=== PATIENT | female | born 1940 | race Caucasian/White ===

== ENCOUNTER → 2016-09-11 | Outpatient (CLI) | payer MEDICARE ==
[~2016-09-11] MED LIST: ?ANTIBIOTIC; ACET650T52 PO; ALBU2.5V52 INH; ALBU8.5H2 IH; ALBU8.5H2 INH; ALPR0.254 PO; ALPR0.2550 PO; AMLO2.5T PO; ASP81CT PO; ASP81TEC PO; ASPI-808 PO; ASPI1TAB22 PO; ASPI81TA45 PO; ATN50T PO; AZIT500T2 PO; BISO10TA PO; BISO5TAB PO; BISO5TAB8 PO; BMT1T; CALC-656 PO; CEFD300C PO; CEFD300C3 PO; CEFU500T5 PO; CEPH500C PO; CHOL200018 PO; CITA-105 PO; CITA20TA4 PO; CLAR-19 PO; CLD600T PO; CLPD75T PO; COQ 10 PO; D50KC PO; DIVA500T PO; DOXY-233 PO; ESCI5TAB PO; FA/M1TAB29 PO; FEXO-104 PO; FLUT1DIS2 IH; FLUT1DIS28 INH; FURO20TA4 PO; FURO40TA4 PO; HYDR-623 PO; IPRA3AMP11 INH; KCL10CCR; LEVO500S PO; LVT.1T PO; MAGN400C PO; MAGN400T6 PO; MAGN500C4 PO; MELO-195 PO; MELO-198 PO; MULT-974 PO; MULT-985 PO; MULT1TAB63 PO; NAPR-684 PO; NAPR250T34 PO; OMEG-11 PO; OMEP20CA12 PO; OMG1KC PO; ONDA4TAB8 PO; PANT40TA PO; POTA20TA15 PO; POTA20TA8 PO; PRAV40TA2 PO; PRD20T PO; PRED10TA PO; PRED20TA PO; PRM25T PO; PSYL1PAC15 PO; ROSU5TAB PO; SIMV40TA4 PO; SLMFT1E INH; SPRN25T PO; SULF1TAB35 PO; SULF1TAB38 PO; SUPER B COMPLEX PO; TIOT18CA IH; TIOT18CA2 INH; TRM50TRX; Tamiflu; UBID200C PO; VALP250C3 PO; VITA150T PO; VITA400C58 PO
--- OUTSIDE RECORDS SUMMARY | 2016-09-11 13:06 | XMS REPORT | Continuity of Care Document ---
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 Name Role Phone CAROLANN RICHARDSON MD PCP Insurance Providers Payer Name Policy Number Subscriber Name Relationship Wps Medicare [id number] Yaneli Aguilera 16 Self / Same As Patient Blue Cross [facility] Supp [id number] Yaneli Aguilera Self / Same As Patient Advance Directives Directive Response Recorded Date/Time Advance Directives Yes 09/23/15 2:32am Health Care Power of Metal Model Builder No 09/23/15 2:32am Organ Donor Yes 09/23/15 2:32am Problems Active Problems Medical Problem Onset Date Status Acute exacerbation of chronic bronchitis Unknown Acute Acute exacerbation of chronic bronchitis Unknown Acute Acute exacerbation of chronic bronchitis Unknown Acute Acute exacerbation of chronic bronchitis Unknown Acute Anxiety Unknown Acute Anxiety Unknown Acute Chest pain Unknown Acute Diuresis Unknown Acute Dyspnea Unknown Acute Dyspnea Unknown Acute Gastroenteritis Unknown Acute Influenza Unknown Acute Labile hypertension Unknown Acute Right leg pain Unknown Acute UTI (urinary tract infection) Unknown Acute Upper respiratory infection Unknown Acute Medications Current Home Medications Medication Dose Units Route Directions Days/Qty Instructions Start Date Clopidogrel Bisulfate 75 Mg 75 Mg Oral Every Other Evening 05/19/07 Spironolactone 25 Mg 25 Mg Oral Daily 05/19/07 Pantoprazole Sodium 40 Mg 40 Mg Oral Daily 09/12/11 Simvastatin 40 Mg 40 Mg Oral Bedtime 03/31/12 Levothyroxine Sodium (Levothroid) 100 Mcg 100 Mcg Oral Daily Ubidecarenone 200 Mg 200 Mg Oral Bedtime 08/25/14 [place]-3S/Dha/Epa/Fish Oil 1 Each 1,200 Mg Oral Twice A Day 08/25/14 Vitamin B Complex & Vit C No.4 150 Mg 1 Tab Oral Daily 08/25/14 Cholecalciferol (Vitamin D3) 2,000 Unit 2,000 Unit Oral Bedtime Acetaminophen 650 Mg 1,300 Mg Oral Twice A Day as needed for Pain TAKES 2 (650MG) TABLETS 08/25/14 Albuterol/Ipratropium 3 Ml 3 Ml Inhalation Every 6 Hours as needed for Shortness Of Breath 02/05/15 Albuterol Sulfate 8.5 Gm 2 Puff Inhalation Every 4HRS as needed for Shortness Of Breath 02/05/15 Salmeterol Xinafoate/Fluticasone 1 Disk 1 Puff Inhalation Twice A Day 02/05/15 Calcium Carbonate/Vitamin D3 1 Each 1 Tab Oral Bedtime 02/05/15 Multivitamin 1 Each 1 Tab Oral Daily 02/05/15 Aspirin 325 Mg 650 Mg Oral Daily TAKES 2 (325MG) TABLETS 09/24/15 Bisoprolol Fumarate 10 Mg 10 Mg Oral Bedtime 09/24/15 Tiotropium [place] 1 Inh 1 Inh Inhalation Daily 09/24/15 Alprazolam 0.25 Mg 0.25 Mg Oral Every 8HRS as needed for Anxiety Multivitamin With Minerals 1 Each 1 Tab Oral Daily 09/24/15 Vitamin E Mixed 400 Unit 400 Unit Oral Daily 09/24/15 Aspirin/Acetaminophen/Caffeine 1 Each 1 Tab Oral Daily as needed for Migraine 09/24/15 Potassium Chloride 20 Meq 20 Meq Oral Daily@0700 90 09/25/15 Furosemide 40 Mg 40 Mg Oral Daily 90 09/25/15 Past Home Medications Medication Directions Ordered Status Atenolol 50 Mg Tablet, 50 Mg Oral Daily 05/19/07 Discontinued Bumetanide 1 Mg Tablet, 05/19/07 Discontinued Aspirin 81 Mg Tablet, 81 Mg Oral Daily 05/19/07 Discontinued Levothyroxine Sodium (Levothroid) 100 Mcg Tablet, 100 Mcg Oral Daily Discontinued Naproxen 250 Mg Tablet, 500 Mg Oral Twice A Day as needed 05/19/07 Discontinued Omeprazole 20 Mg Capsule.dr, 20 Mg Oral Daily 05/19/07 Discontinued Potassium Chloride 10 Meq Capcr, 05/19/07 Discontinued Tramadol Hcl 50 Mg Tab, 05/19/07 Discontinued [Coq 10] Tab, 1 Tab Oral Bedtime 05/19/07 Discontinued Multivitamins 1 Ea Tablet, 1 Tab Oral Daily 05/19/07 Discontinued Calcium/Vitamin D 1 Tab Tablet, 1 Tab Oral Bedtime 05/19/07 Discontinued Fish Oil 1,000 Mg Cap, 1000 Mg Oral Twice A Day 05/19/07 Discontinued [Super B Complex] Tab, 1 Tab Oral Daily 05/19/07 Discontinued Promethazine Hcl 25 Mg Tablet, 1 Tab Oral Four Times Daily as needed Discontinued Rosuvastatin Calcium 5 Mg Tablet, 1 Each Oral Daily 09/12/11 Discontinued Bisoprolol Fumarate 5 Mg Tablet, 5 Mg Oral Bedtime 09/12/11 Discontinued Fexofenadine Hcl 180 Mg Tablet, 180 Mg Oral Daily 09/12/11 Discontinued Escitalopram Oxalate 5 Mg Tablet, 1 Each Oral Daily 09/12/11 Discontinued Magnesium Oxide 400 Mg Tablet, 1 Each Oral Daily 09/12/11 Discontinued Amlodipine Besylate (Norvasc 2.5 Mg) 2.5 Mg Tablet, 2.5 Mg Oral Daily Discontinued Salmeterol Xinafoate/Fluticasone 1 Diskus Inhp, 0 Inhalation Bedtime Discontinued Citalopram Hydrobromide 40 Mg Tablet, 20 Mg Oral Daily 03/31/12 Discontinued Albuterol 8.5 Gm Hfa.aer.ad, 8.5 Gm Inhalation As Needed 03/31/12 Discontinued Tiotropium [place] 1 Inh Aerp, 0 Inhalation Daily 03/31/12 Discontinued Ergocalciferol 50,000 Unit Capsule, 64083 Unit Oral Weekly 03/31/12 Discontinued Psyllium Hydrophilic Mucilloid 1 Pkt Packet, 1 Pkt Oral Bedtime as needed 12/05 Discontinued Divalproex Sodium 500 Mg Tablet.dr, 500 Mg Oral Twice A Day 04/18/12 Discontinued Aspirin 81 Mg Chew, 81 Mg Oral Daily 04/19/12 Discontinued Cephalexin Monohydrate (Keflex) 500 Mg Capsule, 1 Each Oral Four Times Daily 07/30/12 Discontinued Acetaminophen/Hydrocodone Bitart 1 Tab Tablet, 1 Each Oral Q 4 - 6 Hrs Prn Discontinued Azithromycin 500 Mg Tablet, 500 Mg Oral Daily 08/14/12 Discontinued Trimethoprim/Sulfamethoxazole 1 Ea Tablet, 1 Ea Oral Twice A Day 08/14/12 Discontinued Meloxicam (Mobic) 15 Mg Tablet, 15 Mg Oral Bedtime 08/06/13 Discontinued Acetaminophen 650 Mg Tablet.sa, 650 Mg Oral Twice A Day 08/06/13 Discontinued Cefdinir 300 Mg Capsule, 300 Mg Oral Twice A Day 08/06/13 Discontinued Prednisone 20 Mg Tab, 40 Mg Oral Daily 08/06/13 Discontinued [?Antibiotic] , Twice A Day 08/18/13 Discontinued [Tamiflu] , 75 Twice A Day 08/18/13 Discontinued Citalopram Hydrobromide 20 Mg Tablet, 20 Mg Oral Daily 08/18/13 Discontinued Naproxen 250 Mg Tablet, 500 Mg Oral Daily 08/18/13 Discontinued Meloxicam (Mobic) 7.5 Mg Tablet, 1 Each Oral Daily 01/21/14 Discontinued Cefdinir (Omnicef) 300 Mg Capsule, 1 Each Oral Twice A Day 01/21/14 Discontinued Aspirin 81 Mg Tabec, 81 Mg Oral Daily 08/25/14 Discontinued Fluticasone/Salmeterol 1 Each Disk.w.dev, 1 Puff Inhalation Twice A Day 08/25 Discontinued Albuterol 8.5 Gm Hfa.aer.ad, 2 Puff Inhalation Every 4HRS as needed for Shortness Of Breath 08/25/14 Discontinued Magnesium Oxide 400 Mg Capsule, 400 Mg Oral Bedtime 08/25/14 Discontinued Fa/Multivits-Min/Lycopene/Lut 1 Each Tablet, 1 Tab Oral Daily 08/25/14 Discontinued Cefuroxime Axetil (Ceftin) 500 Mg Tablet, 1 Each Oral Twice A Day 01/07/15 Discontinued Prednisone 10 Mg Tablet, 40 Mg Oral Daily 01/07/15 Discontinued Doxycycline Monohydrate 100 Mg Tablet, 100 Mg Oral Twice A Day 01/29/15 Discontinued Prednisone 20 Mg Tablet, 20 Mg Oral Twice A Day 01/29/15 Discontinued Albuterol Sulfate 2.5 Mg/3 Ml Nebu, 2.5 Mg Inhalation Every 4HRS as needed for Shortness Of Breath 02/03/15 Discontinued Prednisone 20 Mg Tablet, 40 Mg Oral Daily 07/11/15 Discontinued Levofloxacin 500 Mg/20 Ml Solution, 500 Mg Oral Daily 02/03/15 Discontinued Magnesium Oxide 500 Mg Capsule, 500 Mg Oral Bedtime 02/05/15 Discontinued Bisoprolol Fumarate 5 Mg Tablet, 10 Mg Oral Bedtime 02/05/15 Discontinued Alprazolam 0.25 Mg Tab.rapdis, 1 Each Oral Give Every 8 Hrs On Schedule for Anxiety 02/06/15 Discontinued Prednisone 20 Mg Tablet, 20 Mg Oral Twice A Day 02/06/15 Discontinued Furosemide 20 Mg Tablet, 20 Mg Oral Daily as needed for Swelling 08/03/15 Discontinued Sulfamethoxazole/Trimethoprim 1 Each Tablet, 1 Each Oral Every 12 Hours 08/03 Discontinued Ondansetron 4 Mg Tab.rapdis, 4 Mg Oral Every 6 Hours as needed for Nausea/ Vomiting 08/03/15 Discontinued Social History Social History Problem Response Recorded Date/Time Alcohol Use Denies Use 09/23/2015 2:34am Recreational Drug Use No 09/23/2015 2:34am Recent Foreign Travel No 04/12/2014 10:21pm Sexually Transmitted Disease No 09/23/2015 2:34am HIV/AIDS No 09/23/2015 2:34am Do you dip or chew tobacco? No 09/23/2015 2:36am Sexually Transmitted Disease No 09/23/2015 2:34am Hx Sexually Transmitted Disorders No 07/30/2012 8:30am Hospital Discharge Instructions Current inpatient/outpatient. Discharge instructions are currently unavailable. Plan of Care Prescriptions Functional Status No functional status results. Allergies, Adverse Reactions, Alerts Allergen Type Severity Reaction Status Last Updated Meperidine Allergy Intermediate NAUSEA Active 08/25/14 Immunizations No immunization records. Vital Signs No known vital signs results. Results No known relevant diagnostic tests, laboratory data and/or discharge summary. Procedures No known history of procedures. Encounters Encounter Location Arrival/Admit Date Discharge/Depart Date Attending Provider Registered Clinic [facility] 06/13/16 10:46am KASHIF HUFF APRN Discharged Recurring [facility] 05/16/16 10:47am 2:51pm KASHIF HUFF APRN
--- NOTE | 2016-09-12 11:53 | Diagnostic Imaging Report ---
Bilateral screening mammogram. The current study was also evaluated with a Computer Aided Detection (CAD) system. INDICATION: Screening. No current complaints stated on the questionnaire. COMPARISON: 09/06/2015. FINDINGS: The breasts are composed of scattered fibroglandular densities. There are occasional benign-appearing calcifications. Allowing for technique and positional differences, no suspicious change is seen. IMPRESSION: No significant change. ACR BI-RADS Category 2: Benign findings. Result letter will be mailed to the patient. Note: At least 10% of breast cancer is not imaged by mammography. Dictated by: Dictated on workstation # [id number]
== END ==
LOC: RAD 13:00
PROVIDERS: ATTEND Internal Medicine
DX: Z12.31 Encounter for screening mammogram for malignant neoplasm of breast (principal)
CPT/HCPCS: 77067

== ENCOUNTER 2016-09-17 22:12 | Emergency (ER) | payer MEDICARE ==
[~2016-09-17] VITALS: Ht 172.7 cm; Wt 83.5 kg
[~2016-09-17 22:12] MED LIST changes: -POTA20TA15 PO; -PRAV40TA2 PO
--- OUTSIDE RECORDS SUMMARY | 2016-09-17 22:18 | XMS REPORT | Continuity of Care Document ---
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 Name Role Phone CAROLANN RICHARDSON MD PCP Insurance Providers Payer Name Policy Number Subscriber Name Relationship Wps Medicare [id number] Yaneli Aguilera 16 Self / Same As Patient Blue Cross [facility] Supp [id number] Yaneli Aguilera Self / Same As Patient Advance Directives Directive Response Recorded Date/Time Advance Directives Yes 09/23/15 2:32am Health Care Power of Reinforcing Rod Layer No 09/23/15 2:32am Organ Donor Yes 09/23/15 [...] 200 Mg 200 Mg Oral Bedtime 08/25/14 [place]-3S/Dha/Epa/Fish Oil 1 Each 1,200 Mg Oral Twice [...] Mg 10 Mg Oral Bedtime 09/24/15 Tiotropium [place] 1 Inh 1 Inh Inhalation Daily 09/24/15 [...] Gm Inhalation As Needed 03/31/12 Discontinued Tiotropium [place] 1 Inh Aerp, 0 Inhalation Daily 03/31/12 Discontinued Ergocalciferol 50,000 Unit Capsule, 33284 Unit Oral Weekly 03/31/12 Discontinued Psyllium Hydrophilic [...] Discharge/Depart Date Attending Provider Registered Clinic [facility] 06/13/16 10:46am KASHIF HUFF APRN Discharged Recurring [facility] 05/16/16 10:47am 2:51pm KASHIF HUFF APRN
[2016-09-17] MEDS ORDERED: ONDANSETRON 4 MG/2 ML (SDV) Z0FRAN IVP ONE (22:30)
[2016-09-17] MEDS ORDERED: NS 1000 ML IV BAG IV ONE (22:30)
--- NOTE | 2016-09-17 23:57 | ED GI ---
General Chief Complaint: Abdominal/GI Problems Stated Complaint: VOMITING Nursing Triage Note: PT C/O ABDOMINAL PAIN AND VOMITING FOR 3 HOURS. VOMIT 8x Sepsis Screen: No Definite Risk Source of Information: Patient Exam Limitations: No Limitations History of Present Illness Time Seen By Provider: 22:25 Initial Comments Patient complains of epigastric burning and vomiting since 7 p.m. She states she's vomited 8-10 times. Emesis is foodstuffs. No fevers. She denies diarrhea. Allergies and Home Medications Allergies Coded Allergies: meperidine (Verified Allergy, Intermediate, NAUSEA, 08/25/14) Home Medications Acetaminophen 650 Mg Tablet.sa 1,300 MG PO BID PRN PRN PAIN (Reported) TAKES 2 (650MG) TABLETS Albuterol Sulfate 8.5 Gm Aer.w.adap 2 PUFF INH Q4H PRN PRN SHORTNESS OF BREATH ( Reported) Albuterol/Ipratropium 3 Ml Nebu 3 ML INH Q6H PRN PRN SHORTNESS OF BREATH ( Reported) Alprazolam 0.25 Mg Tablet 0.25 MG PO Q8H PRN PRN ANXIETY (Reported) Aspirin 325 Mg Tablet 650 MG PO DAILY (Reported) TAKES 2 (325MG) TABLETS Aspirin/Acetaminophen/Caffeine 1 Each Tablet 1 TAB PO DAILY PRN PRN MIGRAINE ( Reported) Bisoprolol Fumarate 10 Mg Tablet 10 MG PO HS (Reported) Calcium Carbonate/Vitamin D3 1 Each Tablet 1 TAB PO HS (Reported) Cholecalciferol (Vitamin D3) 2,000 Unit Capsule 2,000 UNIT PO HS (Reported) Clopidogrel 75 Mg Tablet 75 MG PO EVERY OTHER EVENING (Reported) Fluticasone/Salmeterol 1 Disk Inhp 1 PUFF INH BID (Reported) Furosemide 40 Mg Tablet #90 40 MG PO DAILY Prescribed by: CORNELIUS LESTER on 09/25/15 0836 Levothyroxine Sodium 100 Mcg Tablet 100 MCG PO DAILY (Reported) Multivitamin 1 Each Tablet 1 TAB PO DAILY (Reported) Multivitamin with Minerals 1 Each Tablet 1 TAB PO DAILY (Reported) [place]-3S/Dha/Epa/Fish Oil 1 Each Capsule 1,200 MG PO BID (Reported) Pantoprazole Sodium 40 Mg Tablet.dr 40 MG PO DAILY (Reported) Potassium Chloride 20 Meq Tab.er.prt #90 20 MEQ PO DAILY@0700 Prescribed by: CORNELIUS LESTER on 09/25/15 0836 Simvastatin 40 Mg Tablet 40 MG PO HS (Reported) Spironolactone 25 Mg Tablet 25 MG PO DAILY (Reported) Tiotropium [place] 1 Inh Aerp 1 INH INH DAILY (Reported) Ubidecarenone 200 Mg Capsule 200 MG PO HS (Reported) Vitamin B Complex & Vit C No.4 150 Mg Tablet 1 TAB PO DAILY (Reported) Vitamin E Mixed 400 Unit Capsule 400 UNIT PO DAILY (Reported) Review of Systems Constitutional: no symptoms reported Respiratory: No Symptoms Reported Cardiovascular: No Symptoms Reported Gastrointestinal: Abdominal PainDenies Diarrhea, Nausea Vomiting Genitourinary: No Symptoms Reported Musculoskeletal: no symptoms reported All Other Systems Reviewed Negative Unless Noted: Yes Past Gludkim-Djqbnz-Doiuhu Hx Patient Social History Former Smoker/When Quit: Feb 05, 1995 Recent Foreign Travel: No Contact w/Someone Who Travel: No Recent Infectious Disease Expo: No Recent Hopitalizations: Yes Immunizations Up To Date Tetanus Booster (TDap): Unknown PED Vaccines UTD: No Date of Pneumonia Vaccine: Apr 26, 2011 Date of Influenza Vaccine: May 31, 2015 Seasonal Allergies Seasonal Allergies: No Surgeries HX Surgeries: Yes (SURGERY FOR ENDOMETRIOSIS;MULTIPLE ORTHO SURGERIES;C-SPINE SURGERY) Surgeries: Adenoidectomy, Appendectomy, Cardiac, CABG, Hysterectomy, Lobectomy , Oophorectomy, Orthopedic, Pneumonectomy, Tonsillectomy Respiratory Hx Respiratory Disorders: Yes Respiratory Disorders: Chronic Bronchitis, Sleep Apnea, COPD, Emphysema Cardiovascular Hx Cardiac Disorders: Yes Cardiac Disorders: Aneurysm, Chronic Edema/Swelling, Coronary Artery Disease, High Cholesterol, Hypertension, Peripheral Vascular Neurological Hx Neurological Disorders: No Reproductive System Hx Reproductive Disorders: No Sexually Transmitted Disease: No HIV/AIDS: No Female Reproductive Disorders: Denies, Endometriosis 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 Genitourinary Hx Genitourinary Disorders: No Gastrointestinal Hx Gastrointestinal Disorders: Yes Gastrointestinal Disorders: Gastroesophageal Reflux, Esophagitis Musculoskeletal Hx Musculoskeletal Disorders: Yes (CHRONIC NECK PAIN--S/P SURGERY, MULTIPLE ORTHO SURGERIES) Musculoskeletal Disorders: Arthritis Endocrine Hx Endocrine Disorders: Yes Endocrine Disorders: Hypothyroidsim HEENT HX ENT Disorders: Yes HEENT Disorders: Cataract Loss of Vision: Bilateral Hearing Impairment: Bilateral Hearing Aide Cancer Hx Cancer: Yes Cancer: Lung Psychosocial Hx Psychiatric Problems: No Integumentary HX Skin/Integumentary Disorder: No Blood Transfusions Hx Blood Disorders: No Adverse Reaction to a Blood Tr: No Reviewed Nursing Assessment Reviewed/Agree w Nursing PMH: Yes Family Medical History Significant Family History: No Pertinent Family Hx Family Medial History: Physical Exam Vital Signs VS - Last 72 Hours, by Label 09/17/16 22:18 Temp 96.2 Pulse 76 Resp 18 B/P 148/74 Pulse Ox 94 O2 Delivery Nasal Cannula O2 Flow Rate 2 Capillary Refill : Less Than 3 Seconds General Appearance: WD/WN no apparent distress Neck: supple Respiratory: lungs clear normal breath sounds Cardiovascular: regular rate, rhythm no edema Gastrointestinal: normal bowel sounds non tender soft Neurologic/Psychiatric: alert normal mood/affect Skin: normal color warm/dry Progress/Results/Core Measures Results/Orders My Orders Orders-SUKI STONE MD Cbc With Automated Diff (09/17/16 22:19) Comprehensive Metabolic Panel (09/17/16 22:19) Lipase (09/17/16 22:19) Ua Culture If Indicated (09/17/16 22:19) Acute Abd Series (09/17/16 22:19) Ns Iv 1000 Ml (Sodium Chloride 0.9%) (09/17/16 22:30) Ondansetron Injection (Zofran Injectio (09/17/16 22:30) Vital Signs/I&O Vital Sign - Last 12Hours 09/17/16 22:18 Temp 96.2 Pulse 76 Resp 18 B/P 148/74 Pulse Ox 94 O2 Delivery Nasal Cannula O2 Flow Rate 2 Blood Pressure Mean: 98 Progress Note : Time: 23:56 Progress Note Better after IV fluids and Zofran. Departure Impression Impression: Primary Impression: Nausea and vomiting Disposition: 01 HOME, SELF-CARE Condition: Stable Departure-Patient Inst. Decision time for Depature: 23:56 Referrals: CAROLANN RICHARDSON MD (PCP/Family) Primary Care Physician Patient Instructions: Nausea and Vomiting, Adult SUKI STONE MD Sep 17, 2016 23:57
[2016-09-17] MEDS ORDERED: RX-ONDANSETRON 4 MG ODT (ZOFRAN) PPK #4 PO STA (23:58)
[2016-09-18 00:12] LABS: CREATININE SERUM 1.02 MG/DL (0.60-1.30); POTASSIUM 3.9 MMOL/L (3.6-5.0)
[2016-09-18 00:13] LABS: ALBUMIN 4.2 G/DL (3.2-4.5); BILIRUBIN,TOTAL 0.3 MG/DL (0.1-1.0); CALCIUM 9.8 MG/DL (8.5-10.1); TOTAL PROTEIN 6.9 G/DL (6.4-8.2)
[2016-09-18 00:19] LABS: WHITE BLOOD COUNT 8.9 10^3/uL (4.3-11.0)
[2016-09-18 00:20] LABS: BASOPHILS % (AUTO) 0 % (0-10); EOSINOPHILS # (AUTO) 0.1 10^3/uL (0.0-0.3); EOSINOPHILS % (AUTO) 2 % (0-10); LYMPHOCYTES # (AUTO) 0.8 X 10^3 (1.0-4.0); LYMPHOCYTES % (AUTO) 9 % (12-44); MEAN CORPUSCULAR HEMOGLOBIN 32 PG (25-34); MEAN CORPUSCULAR HGB CONC 32 G/DL (32-36); MEAN CORPUSCULAR VOLUME 98 FL (80-99); MEAN PLATELET VOLUME 9.8 FL (7.4-10.4); MONOCYTES # (AUTO) 0.9 X 10^3 (0.0-1.0); MONOCYTES % (AUTO) 11 % (0-12); NEUTROPHILS % (AUTO) 78 % (42-75); PLATELET COUNT 154 10^3/uL (130-400); RED BLOOD COUNT 4.23 10^6/uL (4.35-5.85); RED CELL DISTRIBUTION WIDTH 13.2 % (10.0-14.5)
[2016-09-18 00:30] VITALS: BP 106/52
--- NOTE | 2016-09-18 07:54 | Diagnostic Imaging Report ---
EXAM: ACUTE ABD SERIES INDICATION: Shortness of air. COMPARISON: Chest radiograph, 02/14/2015. FINDINGS: Normal heart size and pulmonary vascularity. Hyperinflation. Linear scarring and/or atelectasis in the lung bases. Sternotomy. Calcified aorta. Postoperative changes in the lower cervical spine. No free intraperitoneal air. Nonobstructive bowel gas pattern. Degenerative changes in the lumbar spine and both hips. IMPRESSION: 1. COPD. No acute cardiopulmonary findings. 2. Nonobstructive bowel gas pattern. No free intraperitoneal air. Dictated by: Dictated on workstation # [id number]
== END 2016-09-18 00:30 | disposition home or self-care (01) ==
LOC: EDUNIT# 22:12 → ER 22:14
DX: R11.2 Nausea with vomiting, unspecified (principal); R10.13 Epigastric pain; I10 Essential (primary) hypertension; J44.9 Chronic obstructive pulmonary disease, unspecified; I25.10 Atherosclerotic heart disease of native coronary artery without angina pectoris; Z79.82 Long term (current) use of aspirin; Z79.02 Long term (current) use of antithrombotics/antiplatelets; Z79.899 Other long term (current) drug therapy; Z95.1 Presence of aortocoronary bypass graft
CPT/HCPCS: 36415; 74022; 80053; 83690; 85025; 96361; 96374

== ENCOUNTER → 2016-10-01 | Outpatient (CLI) | payer MEDICARE ==
[~2016-10-01] MED LIST changes: +POTA20TA15 PO; +PRAV40TA2 PO
--- OUTSIDE RECORDS SUMMARY | 2016-10-01 11:25 | XMS REPORT | Continuity of Care Document ---
Author Author [facility] Organization [facility] Address Unknown Phone Unavailable Care Team Providers Care Adjutant General Name Role Phone CAROLANN RICHARDSON MD PCP Insurance Providers Payer Name Policy Number Subscriber Name Relationship Wps Medicare [id number] Yaneli Aguilera 16 Self / Same As Patient Blue Cross [employer] Supp [id number] Yaneli Aguilera Self / Same As Patient Advance Directives Directive Response Recorded Date/Time Advance Directives Yes 09/23/15 2:32am Health Care Power of Machine Compositor No 09/23/15 2:32am Organ Donor Yes 09/23/15 [...] 200 Mg 200 Mg Oral Bedtime 08/25/14 [place]-3S/Dha/Epa/Fish Oil 1 Each 1,200 Mg Oral Twice [...] Mg 10 Mg Oral Bedtime 09/24/15 Tiotropium [place] 1 Inh 1 Inh Inhalation Daily 09/24/15 [...] Gm Inhalation As Needed 03/31/12 Discontinued Tiotropium [place] 1 Inh Aerp, 0 Inhalation Daily 03/31/12 Discontinued Ergocalciferol 50,000 Unit Capsule, 20267 Unit Oral Weekly 03/31/12 Discontinued Psyllium Hydrophilic [...]
--- NOTE | 2016-10-01 12:34 | Diagnostic Imaging Report ---
INDICATION: Flulike symptoms x1 month. Shortness of air on exertion. COMPARISON: 09/17/2016 FINDINGS: Frontal and lateral radiographic views of the chest were obtained. There is stable appearance to the lungs with blunting of the lateral right costophrenic angle and tenting of the right hemidiaphragm. There is no focal consolidation or pneumothorax on either side. No large effusion is seen on the left. Cardiac silhouette and pulmonary vasculature within normal limits. Sternotomy wires and aortic atherosclerosis are noted. Bony structures show no gross acute abnormalities. IMPRESSION: 1. 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 Dictated by: Dictated on workstation # [id number]
== END ==
LOC: RAD 11:20
PROVIDERS: ATTEND Nurse Practitioner Family
DX: R06.02 Shortness of breath (principal); R09.02 Hypoxemia
CPT/HCPCS: 71020

== ENCOUNTER 2016-11-10 14:54 | Emergency (ER) | payer MEDICARE ==
[~2016-11-10] VITALS: Ht 172.7 cm; Wt 84.8 kg
[~2016-11-10 14:54] MED LIST changes: -POTA20TA15 PO; -PRAV40TA2 PO
--- NOTE | 2016-11-10 15:16 | ED Head Injury ---
General Chief Complaint: Head/Cervical Problems Stated Complaint: POSS HEAD INJURY Source: patient Exam Limitations: no limitations History of Present Illness Time seen by provider: 15:11 Initial Comments To ER with a right-sided hematoma over the right eyebrow. She ran into something on the wall 3 days ago. No loss of consciousness. Her doctor who she saw today for urinary tract infection was concerned and sent her to the emergency room. Occurred: last week Severity: moderate Location: frontal Loss of Consciousness: no loss of consciousness Associated Systoms: No Chest Pain, No Cough, No Diaphoresis, No Fever/Chills, No Headaches, No Loss of Appetite, No Malaise, No Nausea/Vomiting, No Rash Allergies and Home Medications Allergies Coded Allergies: meperidine (Verified Allergy, Intermediate, NAUSEA, 08/25/14) Home Medications Acetaminophen 650 Mg Tablet.sa, 1,300 MG PO BID PRN for PAIN, (Reported) TAKES 2 (650MG) TABLETS Albuterol Sulfate 8.5 Gm Aer.w.adap, 2 PUFF INH Q4H PRN for SHORTNESS OF BREATH, (Reported) Albuterol/Ipratropium 3 Ml Nebu, 3 ML INH Q6H PRN for SHORTNESS OF BREATH, ( Reported) Alprazolam 0.25 Mg Tablet, 0.25 MG PO Q8H PRN for ANXIETY, (Reported) Aspirin 325 Mg Tablet, 650 MG PO DAILY, (Reported) TAKES 2 (325MG) TABLETS Aspirin/Acetaminophen/Caffeine 1 Each Tablet, 1 TAB PO DAILY PRN for MIGRAINE, ( Reported) Bisoprolol Fumarate 10 Mg Tablet, 10 MG PO HS, (Reported) Calcium Carbonate/Vitamin D3 1 Each Tablet, 1 TAB PO HS, (Reported) Cholecalciferol (Vitamin D3) 2,000 Unit Capsule, 2,000 UNIT PO HS, (Reported) Clopidogrel 75 Mg Tablet, 75 MG PO EVERY OTHER EVENING, (Reported) Fluticasone/Salmeterol 1 Disk Inhp, 1 PUFF INH BID, (Reported) Furosemide 40 Mg Tablet, 40 MG PO DAILY, #90 Ref 3 Prescribed by: CORNELIUS LESTER on 09/25/15 0836 Levothyroxine Sodium 100 Mcg Tablet, 100 MCG PO DAILY, (Reported) Multivitamin 1 Each Tablet, 1 TAB PO DAILY, (Reported) Multivitamin with Minerals 1 Each Tablet, 1 TAB PO DAILY, (Reported) [place]-3S/Dha/Epa/Fish Oil 1 Each Capsule, 1,200 MG PO BID, (Reported) Pantoprazole Sodium 40 Mg Tablet.dr, 40 MG PO DAILY, (Reported) Potassium Chloride 20 Meq Tab.er.prt, 20 MEQ PO DAILY@0700, #90 Ref 3 Prescribed by: CORNELIUS LESTER on 09/25/15 0836 Simvastatin 40 Mg Tablet, 40 MG PO HS, (Reported) Spironolactone 25 Mg Tablet, 25 MG PO DAILY, (Reported) Tiotropium [place] 1 Inh Aerp, 1 INH INH DAILY, (Reported) Ubidecarenone 200 Mg Capsule, 200 MG PO HS, (Reported) Vitamin B Complex & Vit C No.4 150 Mg Tablet, 1 TAB PO DAILY, (Reported) Vitamin E Mixed 400 Unit Capsule, 400 UNIT PO DAILY, (Reported) Constitutional: see HPI, No chills, No fever Eyes: No Symptoms Reported Ears, Nose, Mouth, Throat: no symptoms reported Respiratory: no symptoms reported Cardiovascular: no symptoms reported Genitourinary: no symptoms reported Musculoskeletal: no symptoms reported Skin: no symptoms reported Psychiatric/Neurological: No Symptoms Reported Endocrine: No Symptoms Reported Hematologic/Lymphatic: No Symptoms Reported Past Ppjydqt-Lqsxru-Pywkpz Hx Patient Social History Former Smoker/When Quit: Feb 05, 1995 Recent Foreign Travel: No Contact w/Someone Who Travel: No Recent Hopitalizations: Yes Immunizations Up To Date Tetanus Booster (TDap): Unknown PED Vaccines UTD: No Date of Pneumonia Vaccine: Apr 26, 2011 Date of Influenza Vaccine: May 31, 2015 Seasonal Allergies Seasonal Allergies: No Surgeries HX Surgeries: Yes (SURGERY FOR ENDOMETRIOSIS;MULTIPLE ORTHO SURGERIES;C-SPINE SURGERY) Surgeries: Adenoidectomy, Appendectomy, Cardiac, CABG, Hysterectomy, Lobectomy , Oophorectomy, Orthopedic, Pneumonectomy, Tonsillectomy Respiratory Hx Respiratory Disorders: Yes Respiratory Disorders: Chronic Bronchitis, Sleep Apnea, COPD, Emphysema Cardiovascular Hx Cardiac Disorders: Yes Cardiac Disorders: Aneurysm, Chronic Edema/Swelling, Coronary Artery Disease, High Cholesterol, Hypertension, Peripheral Vascular Neurological Hx Neurological Disorders: No Reproductive System Hx Reproductive Disorders: No Sexually Transmitted Disease: No HIV/AIDS: No Female Reproductive Disorders: Denies, 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 Genitourinary Hx Genitourinary Disorders: No Gastrointestinal Hx Gastrointestinal Disorders: Yes Gastrointestinal Disorders: Gastroesophageal Reflux, Esophagitis Musculoskeletal Hx Musculoskeletal Disorders: Yes (CHRONIC NECK PAIN--S/P SURGERY, MULTIPLE ORTHO SURGERIES) Musculoskeletal Disorders: Arthritis Endocrine Hx Endocrine Disorders: Yes Endocrine Disorders: Hypothyroidsim HEENT HX ENT Disorders: Yes HEENT Disorders: Cataract Loss of Vision: Bilateral Hearing Impairment: Bilateral Hearing Aide Cancer Hx Cancer: Yes Cancer: Lung Psychosocial Hx Psychiatric Problems: No Integumentary HX Skin/Integumentary Disorder: No Blood Transfusions Hx Blood Disorders: No Adverse Reaction to a Blood Tr: No Family Medical History Significant Family History: No Pertinent Family Hx Family Medial History: Physical Exam Vital Signs Vital Sign - Last 12Hours 11/10/16 14:59 Temp 98.8 Pulse 71 Resp 18 O2 Delivery Nasal Cannula Capillary Refill : General Appearance: WD/WN, no apparent distress HEENT: PERRL/EOMI, normal ENT inspection, TMs normal, other (ecchymosis to right eyebrow) Neck: non-tender, full range of motion, No tender lateral, No tender midline Cardiovascular: regular rate, rhythm, no murmur Respiratory: normal breath sounds, no respiratory distress, no accessory muscle use Gastrointestinal: normal bowel sounds, non tender, soft Extremities: normal range of motion, non-tender Psychiatric: alert, oriented x 3 Crainal Nerves: normal hearing, normal speech, PERRL Motor/Sensory: no motor deficit, no sensory deficit Skin: normal color, warm/dry Samara Coma Score Best Eye Response: (4) Open Spontaneously Best Verbal Response: (5) Oriented Best Motor Response: (6) Obeys Commands Samara Total: 15 Progress/Results/Core Measures Results/Orders My Orders Orders - KATHRYN HUANG APRN Ct Head/Cervical Spine Wo (11/10/16 15:10) Vital Signs/I&O Vital Sign - Last 12Hours 11/10/16 14:59 Temp 98.8 Pulse 71 Resp 18 B/P (MAP) O2 Delivery Nasal Cannula Departure Impression Impression: Primary Impression: Head contusion Disposition: 01 HOME, SELF-CARE Condition: Stable Departure-Patient Inst. Decision time for Depature: 16:59 Referrals: CAROLANN RICHARDSON MD (PCP/Family) Primary Care Physician Patient Instructions: Contusion (DC) KATHRYN HUANG APRN Nov 10, 2016 15:16
--- NOTE | 2016-11-10 17:08 | Diagnostic Imaging Report ---
PROCEDURE: CT head and CT cervical spine without contrast. TECHNIQUE: Multiple contiguous axial images were obtained through the brain and cervical spine without the use of intravenous contrast. Sagittal and coronal reformations through the cervical spine were then performed. INDICATION: Dizziness and vision problems after hitting self while walking three days ago. FINDINGS: CT head: There is no intracranial hemorrhage, edema or mass effect. The brain parenchyma demonstrates periventricular and deep white matter hypodensities compatible with chronic microvascular ischemic changes. There is no hydrocephalus. No extra-axial fluid collection or hemorrhage. The visualized calvarium, orbits and paranasal sinuses appear grossly unremarkable. CT cervical spine: There are postsurgical fusion changes seen with anterior plate and screws involving the C3-C7 levels with corpectomy at C4 and C6 levels. There is fusion of the facet joints on the left involving C3/4 and C4/5 and early effusion on the right at the C3/4 level. There is also osseous bridging seen along the posterior left side aspect of the vertebral bodies C3-C5. No definite osseous fusion from C5-C7 levels. The alignment of the posterior spinal line is satisfactory. The remaining posterior osteophytes at C6/7 are seen. The alignment of the lateral masses of C1 and C2 is satisfactory as well as the atlantooccipital joints. No widening of the predental space. There is fusion between the spinous processes of C3 and C4. There is lower cervical spine facet and uncovertebral joint arthropathy. The neural foramina on the right side at C5/6 and C6/7 demonstrate moderate to severe narrowing. Other foramina demonstrates no high-grade stenosis. No acute fracture is seen. IMPRESSION: 1. CT Head: No intracranial hemorrhage. 2. CT cervical spine: Advanced background degenerative changes and postsurgical and fusion changes involving C3-C7 levels. No acute fracture. Dictated by: Dictated on workstation # [id number]
[2016-11-10 17:12] VITALS: BP 129/64
== END 2016-11-10 17:12 | disposition home or self-care (01) ==
LOC: EDUNIT# 14:54 → ER 14:56
DX: S00.93XA Contusion of unspecified part of head, initial encounter (principal); I25.10 Atherosclerotic heart disease of native coronary artery without angina pectoris; J44.9 Chronic obstructive pulmonary disease, unspecified; Z79.82 Long term (current) use of aspirin; Z79.02 Long term (current) use of antithrombotics/antiplatelets; Z79.899 Other long term (current) drug therapy; Z95.1 Presence of aortocoronary bypass graft; W22.01XA Walked into wall, initial encounter; Y92.009 Unspecified place in unspecified non-institutional (private) residence as the place of occurrence of the external cause; Y99.8 Other external cause status
CPT/HCPCS: 70450; 72125; 99282

== ENCOUNTER 2016-11-24 21:36 | Inpatient (IN) | payer MEDICARE ==
[~2016-11-24] VITALS: Ht 172.7 cm; Wt 83.4 kg
--- NOTE | 2016-11-24 22:15 | ED GI ---
General Chief Complaint: Abdominal/GI Problems Stated Complaint: DIARRHEA Nursing Triage Note: C/O MULTIPLE EPISODES DIARRHEA SINCE APPROX. 1500 TODAY. DENIES OTHER COMPLAINTS Sepsis Screen: No Definite Risk Source of Information: Patient, RN Notes Reviewed Exam Limitations: No Limitations History of Present Illness Time Seen By Provider: 22:15 Initial Comments As above and below. Initially denied any abdominal pain. Took some Imodium which didn't help. Timing/Duration: 4-6 Hours, Constant Radiation: No Radiation Activities at Onset: None Modifying Factors: Improves With Other (none) Associated Symptoms: Denies Symptoms Allergies and Home Medications Allergies Coded Allergies: meperidine (Verified Allergy, Intermediate, NAUSEA, 08/25/14) Home Medications Acetaminophen 650 Mg Tablet.sa, 1,300 MG PO BID PRN for PAIN, (Reported) TAKES 2 (650MG) TABLETS Albuterol Sulfate 8.5 Gm Aer.w.adap, 2 PUFF INH Q4H PRN for SHORTNESS OF BREATH, (Reported) Albuterol/Ipratropium 3 Ml Nebu, 3 ML INH Q6H PRN for SHORTNESS OF BREATH, ( Reported) Alprazolam 0.25 Mg Tablet, 0.25 MG PO Q8H PRN for ANXIETY, (Reported) Aspirin 325 Mg Tablet, 650 MG PO DAILY, (Reported) TAKES 2 (325MG) TABLETS Aspirin/Acetaminophen/Caffeine 1 Each Tablet, 1 TAB PO DAILY PRN for MIGRAINE, ( Reported) Bisoprolol Fumarate 10 Mg Tablet, 10 MG PO HS, (Reported) Calcium Carbonate/Vitamin D3 1 Each Tablet, 1 TAB PO HS, (Reported) Cholecalciferol (Vitamin D3) 2,000 Unit Capsule, 2,000 UNIT PO HS, (Reported) Clopidogrel 75 Mg Tablet, 75 MG PO EVERY OTHER EVENING, (Reported) Fluticasone/Salmeterol 1 Disk Inhp, 1 PUFF INH BID, (Reported) Furosemide 40 Mg Tablet, 40 MG PO DAILY, #90 Ref 3 Prescribed by: CORNELIUS LESTER on 09/25/15 0836 Levothyroxine Sodium 100 Mcg Tablet, 100 MCG PO DAILY, (Reported) Multivitamin 1 Each Tablet, 1 TAB PO DAILY, (Reported) Multivitamin with Minerals 1 Each Tablet, 1 TAB PO DAILY, (Reported) [place]-3S/Dha/Epa/Fish Oil 1 Each Capsule, 1,200 MG PO BID, (Reported) Pantoprazole Sodium 40 Mg Tablet.dr 40 MG PO DAILY, (Reported) Potassium Chloride 20 Meq Tab.er.prt, 20 MEQ PO DAILY@0700, #90 Ref 3 Prescribed by: CORNELIUS LESTER on 09/25/15 0836 Simvastatin 40 Mg Tablet, 40 MG PO HS, (Reported) Spironolactone 25 Mg Tablet, 25 MG PO DAILY, (Reported) Tiotropium [place] 1 Inh Aerp, 1 INH INH DAILY, (Reported) Ubidecarenone 200 Mg Capsule, 200 MG PO HS, (Reported) Vitamin B Complex & Vit C No.4 150 Mg Tablet, 1 TAB PO DAILY, (Reported) Vitamin E Mixed 400 Unit Capsule, 400 UNIT PO DAILY, (Reported) Review of Systems Constitutional: see HPI Gastrointestinal: See HPI, Diarrhea All Other Systems Reviewed Negative Unless Noted: Yes (Negative excepted noted.) Past Lirxpbh-Mumjef-[place] Hx Patient Social History Alcohol Use: Denies Use Recreational Drug Use: No Smoking Status: Former Smoker Former Smoker/When Quit: Feb 05, 1995 Recent Foreign Travel: No Contact w/Someone Who Travel: No Recent Infectious Disease Expo: No Recent Hopitalizations: Yes Immunizations Up To Date Tetanus Booster (TDap): Unknown PED Vaccines UTD: No Date of Pneumonia Vaccine: Apr 26, 2011 Date of Influenza Vaccine: May 31, 2015 Seasonal Allergies Seasonal Allergies: No Surgeries HX Surgeries: Yes (SURGERY FOR ENDOMETRIOSIS;MULTIPLE ORTHO SURGERIES;C-SPINE SURGERY) Surgeries: Adenoidectomy, Appendectomy, Cardiac, CABG, Hysterectomy, Lobectomy , Oophorectomy, Orthopedic, Pneumonectomy, Tonsillectomy Respiratory Hx Respiratory Disorders: Yes Respiratory Disorders: Chronic Bronchitis, Sleep Apnea, COPD, Emphysema Cardiovascular Hx Cardiac Disorders: Yes Cardiac Disorders: Aneurysm, Chronic Edema/Swelling, Coronary Artery Disease, High Cholesterol, Hypertension, Peripheral Vascular Neurological Hx Neurological Disorders: No Reproductive System Hx Reproductive Disorders: No Sexually Transmitted Disease: No HIV/AIDS: No Female Reproductive Disorders: 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, 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 Genitourinary Hx Genitourinary Disorders: No Gastrointestinal Hx Gastrointestinal Disorders: Yes Gastrointestinal Disorders: Gastroesophageal Reflux, Esophagitis Musculoskeletal Hx Musculoskeletal Disorders: Yes (CHRONIC NECK PAIN--S/P SURGERY, MULTIPLE ORTHO SURGERIES) Musculoskeletal Disorders: Arthritis Endocrine Hx Endocrine Disorders: Yes Endocrine Disorders: Hypothyroidsim HEENT HX ENT Disorders: Yes HEENT Disorders: Cataract Loss of Vision: Bilateral Hearing Impairment: Bilateral Hearing Aide Cancer Hx Cancer: Yes Cancer: Lung Psychosocial Hx Psychiatric Problems: No Integumentary HX Skin/Integumentary Disorder: No Blood Transfusions Hx Blood Disorders: No Adverse Reaction to a Blood Tr: No Family Medical History Significant Family History: No Pertinent Family Hx Family Medial History: Physical Exam Vital Signs VS - Last 72 Hours, by Label 11/24/16 11/25/16 22:09 00:05 Temp 96.9 Pulse 78 70 Resp 16 18 B/P (MAP) 130/94 135/84 Pulse Ox 96 95 O2 Delivery Nasal Cannula Room Air O2 Flow Rate 2.00 2.00 2.00 Capillary Refill : Less Than 3 Seconds General Appearance: WD/WN, no apparent distress HEENT: normal ENT inspection Neck: normal inspection Cardiovascular: regular rate, rhythm Gastrointestinal: non tender, soft Rectal: deferred Neurologic/Psychiatric: no motor/sensory deficits, alert, oriented x 3 Skin: warm/dry Progress/Results/Core Measures Results/Orders Lab Results Laboratory Tests Test 11/24/16 22:36 11/25/16 00:35 Range/Units White Blood Count 9.7 4.3-11.0 10^3/uL Red Blood Count 4.67 4.35-5.85 10^6/uL Hemoglobin 14.5 11.5-16.0 G/DL Hematocrit 45 35-52 % Mean Corpuscular Volume 96 80-99 FL Mean Corpuscular Hemoglobin 31 25-34 PG Mean Corpuscular Hemoglobin Concent 32 32-36 G/DL Red Cell Distribution Width 13.2 10.0-14.5 % Platelet Count 210 130-400 10^3/uL Mean Platelet Volume 10.2 7.4-10.4 FL Neutrophils (%) (Auto) 64 42-75 % Lymphocytes (%) (Auto) 28 12-44 % Monocytes (%) (Auto) 8 0-12 % Eosinophils (%) (Auto) 1 0-10 % Basophils (%) (Auto) 0 0-10 % Neutrophils # (Auto) 6.2 1.8-7.8 X 10^3 Lymphocytes # (Auto) 2.7 1.0-4.0 X 10^3 Monocytes # (Auto) 0.8 0.0-1.0 X 10^3 Eosinophils # (Auto) 0.1 0.0-0.3 10^3/uL Basophils # (Auto) 0.0 0.0-0.1 10^3/uL Sodium Level 141 135-145 MMOL/L Potassium Level 4.0 3.6-5.0 MMOL/L Chloride Level 107 98-107 MMOL/L Carbon Dioxide Level 23 21-32 MMOL/L Anion Gap 11 5-14 MMOL/L Blood Urea Nitrogen 23 H 7-18 MG/DL Creatinine 0.94 0.60-1.30 MG/DL Estimat Glomerular Filtration Rate 58 BUN/Creatinine Ratio 24 Glucose Level 90 70-105 MG/DL Calcium Level 10.6 H 8.5-10.1 MG/DL Magnesium Level 2.1 1.8-2.4 MG/DL Total Bilirubin 0.5 0.1-1.0 MG/DL Aspartate Amino Transf (AST/SGOT) 25 5-34 U/L Alanine Aminotransferase (ALT/SGPT) 25 0-55 U/L Alkaline Phosphatase 64 40-136 U/L Troponin I 2.80 *H <0.30 NG/ML B-Type Natriuretic Peptide 41.5 <100.0 PG/ML Total Protein 7.2 6.4-8.2 G/DL Albumin 4.4 3.2-4.5 G/DL Stool Occult Blood Immunoassay POSITIVE H NEGATIVE My Orders Orders - BILL MCKENNA DO Cbc With Automated Diff (11/24/16 22:15) Comprehensive Metabolic Panel (11/24/16 22:15) Stool Culture (11/24/16 22:15) Fecal Wbc (11/24/16 22:15) C Difficile Ag + Toxin A/B. (11/24/16 22:15) Occult Blood Stool (11/24/16 22:15) Ua Culture If Indicated (11/24/16 23:47) Saline Lock/Iv-Start (11/24/16 23:47) Ns Iv 1000 Ml (Sodium Chloride 0.9%) (11/24/16 23:47) Diphenoxylate/Atropine Tablet (Lomotil T (11/24/16 23:49) Diphenoxylate/Atropine Tablet (Lomotil T (11/24/16 23:52) Ct Abdomen/Pelvis W (11/25/16 23:47) Iohexol Injection (Omnipaque 350 Mg/Ml 1 (11/25/16 00:15) Sodium Chloride Flush (Catheter Flush Sy (11/25/16 00:15) Troponin I (11/25/16 00:19) Ekg Tracing (11/25/16 01:03) Chest 1 View, Ap/Pa Only (11/25/16 01:09) BNP (11/25/16 01:09) Magnesium (11/25/16 01:09) Medications Given in ED Current Medications Medications Dose Ordered Sig/Marisela Route Start Time Stop Time Status Last Admin Dose Admin Sodium Chloride 1,000 ml @ 0 mls/hr Q0M ONCE IV 11/24/16 23:47 11/24/16 23:49 DC 11/24/16 23:54 0 MLS/HR Vital Signs/I&O Vital Sign - Last 12Hours 11/24/16 11/25/16 22:09 00:05 Temp 96.9 Pulse 78 70 Resp 16 18 B/P (MAP) 130/94 135/84 Pulse Ox 96 95 O2 Delivery Nasal Cannula Room Air O2 Flow Rate 2.00 2.00 2.00 Blood Pressure Mean: 106 Diagnostic Imaging Diagonstic Imaging: CT Plain Films/CT/US/NM/MRI: abdomen, pelvis Reviewed: Reviewed [place] Study (findings consistent c/ diarrhea) Departure Communication Time/Spoke to Admitting Phy: 01:30 Impression Impression: Primary Impression: Gastroenteritis Additional Impression: Elevated troponin I level Disposition: ADMITTED INPATIENT Condition: Stable Decision to Admit Reason: Admit from ER (General) Decision to Admit/Date: November 25, 2016 Time/Decision to Admit Time: 01:30 Departure-Patient Inst. Referrals: CAROLANN RICHARDSON MD (PCP/Family) Primary Care Physician BILL MCKENNA DO November 24, 2016 22:15
[2016-11-24 22:42] LABS: BASOPHILS % (AUTO) 0 % (0-10); EOSINOPHILS # (AUTO) 0.1 10^3/uL (0.0-0.3); EOSINOPHILS % (AUTO) 1 % (0-10); LYMPHOCYTES # (AUTO) 2.7 X 10^3 (1.0-4.0); LYMPHOCYTES % (AUTO) 28 % (12-44); MEAN CORPUSCULAR HEMOGLOBIN 31 PG (25-34); MEAN CORPUSCULAR HGB CONC 32 G/DL (32-36); MEAN CORPUSCULAR VOLUME 96 FL (80-99); MEAN PLATELET VOLUME 10.2 FL (7.4-10.4); MONOCYTES # (AUTO) 0.8 X 10^3 (0.0-1.0); MONOCYTES % (AUTO) 8 % (0-12); NEUTROPHILS # (AUTO) 6.2 X 10^3 (1.8-7.8); NEUTROPHILS % (AUTO) 64 % (42-75); PLATELET COUNT 210 10^3/uL (130-400); RED BLOOD COUNT 4.67 10^6/uL (4.35-5.85); RED CELL DISTRIBUTION WIDTH 13.2 % (10.0-14.5); WHITE BLOOD COUNT 9.7 10^3/uL (4.3-11.0)
[2016-11-24 23:02] LABS: ALBUMIN 4.4 G/DL (3.2-4.5); BILIRUBIN,TOTAL 0.5 MG/DL (0.1-1.0); CALCIUM 10.6 MG/DL (8.5-10.1); CREATININE SERUM 0.94 MG/DL (0.60-1.30); TOTAL PROTEIN 7.2 G/DL (6.4-8.2)
[2016-11-24] MEDS ORDERED: NS IV 1000 ML 1,000 ML IV ONE (23:47)
[2016-11-24] MEDS ORDERED: DIPHENOXYLATE/ATROPINE 2.5MG/0.025MG (LOMOTIL) TAB PO STA (23:49)
[2016-11-24] MEDS ORDERED: DIPHENOXYLATE/ATROPINE 2.5MG/0.025MG (LOMOTIL) TAB ONE (23:52)
[2016-11-25 00:05] VITALS: BP 135/84
[2016-11-25] MEDS ORDERED: CATHETER FLUSH 10 ML SYR IV PRN (00:15)
[2016-11-25] MEDS ORDERED: IOHEXOL 350 MG/ML 100 ML (OMNIPAQUE 350) VIAL IV ONE (00:15)
[2016-11-25] MEDS ORDERED: ONDANSETRON 4 MG/2 ML (SDV) Z0FRAN IVP ONE (02:30)
[2016-11-25 02:40] VITALS: BP 117/72
[2016-11-25] MEDS ORDERED: NS IV 1000 ML 1,000 ML ONE (02:46)
[2016-11-25 03:00] VITALS: BP 105/63
[2016-11-25] MEDS ORDERED: RT-ALBUTEROL/IPRATROPIUM 3 ML (DUONEB) VIAL INH PRN ×2 (04:00→08:45)
[2016-11-25] MEDS ORDERED: NS IV 1000 ML 1,000 ML IV SCH (04:15)
[2016-11-25] MEDS ORDERED: ONDANSETRON 4 MG/2 ML (SDV) Z0FRAN IV PRN (04:30)
--- NOTE | 2016-11-25 07:34 | Diagnostic Imaging Report ---
EXAM: CHEST 1 VIEW, AP/PA ONLY INDICATION: Diarrhea. Chest and lung surgery. COMPARISON: Chest radiograph 10/01/2016. FINDINGS: Normal heart size and pulmonary vascularity. Mild linear atelectasis or scarring in the left lung base. No dense consolidation, pleural effusion or pneumothorax. Sternotomy with mediastinal clips. Calcified aorta. Postoperative changes in the lower cervical spine. IMPRESSION: No acute cardiopulmonary findings. Dictated by: Dictated on workstation # [id number]
--- NOTE | 2016-11-25 07:40 | Diagnostic Imaging Report ---
PROCEDURE: CT abdomen and pelvis with contrast. TECHNIQUE: Multiple contiguous axial images were obtained through the abdomen and pelvis after administration of intravenous contrast. INDICATION: Diarrhea. COMPARISON: CT abdomen and pelvis with IV contrast 08/03/2015. CTA chest 05/17/2007. FINDINGS: Mild linear scarring in the lung bases. Stable well-circumscribed mass in the left adrenal gland measuring approximately 14 mm has been stable since 05/17/2007. Hysterectomy. Reported appendectomy. Mild colonic diverticulosis without evidence of diverticulitis. The liver, gallbladder, pancreas, spleen, right adrenal gland, kidneys and collecting systems are unremarkable. Moderate arterial calcifications including a normal caliber abdominal aorta. No lymphadenopathy. No free intraperitoneal air or fluid. No evidence of bowel obstruction. No acute osseous findings. IMPRESSION: 1. No acute CT findings in the abdomen or pelvis. 2. Well-circumscribed mass in the left adrenal gland has been stable since at least 05/17/2007 and likely represents a benign adrenal adenoma Dictated by: Dictated on workstation # [id number]
[2016-11-25 08:00] VITALS: BP 103/60
[2016-11-25] MEDS ORDERED: RT-ALBUTEROL/IPRATROPIUM 3 ML (DUONEB) VIAL INH SCH (08:00)
--- NOTE | 2016-11-25 08:31 | Short Stay Summary ---
History of Present Illness History of Present Illness Reason for visit/HPI elevated troponin level 76 years old lady with extensive coronary artery disease and peripheral arterial disease, has been in her usual state of health, has been seeing Dr. Davis, started having abdominal pain and then diarrhea yesterday. came into the emergency room, start her right within noted to have elevated troponin level. Reported occasional episode of chest pain described it as pinch in her chest not radiating, not related to exertion, relieved spontaneously. No syncope or near syncopal episode, had mild dyspnea on exertion, denied any claudications. Date of Admission November 25, 2016 at 02:07 Date of Discharge November 25, 2016 Attending Physician Oli Villagran MD Admitting Physician Reinaldo Dixon MD Consult Allergies and Home Medications Allergies Coded Allergies: meperidine (Verified Allergy, Intermediate, NAUSEA, 08/25/14) Home Medications Acetaminophen 650 Mg Tablet.sa, 1,300 MG PO BID PRN for PAIN, (Reported) TAKES 2 (650MG) TABLETS Albuterol Sulfate 8.5 Gm Aer.w.adap, 2 PUFF INH Q4H PRN for SHORTNESS OF BREATH, (Reported) Albuterol/Ipratropium 3 Ml Nebu, 3 ML INH Q6H PRN for SHORTNESS OF BREATH, ( Reported) Alprazolam 0.25 Mg Tablet, 0.25 MG PO Q8H PRN for ANXIETY, (Reported) Aspirin 325 Mg Tablet, 650 MG PO DAILY, (Reported) TAKES 2 (325MG) TABLETS Aspirin/Acetaminophen/Caffeine 1 Each Tablet, 1 TAB PO DAILY PRN for MIGRAINE, ( Reported) Bisoprolol Fumarate 10 Mg Tablet, 10 MG PO HS, (Reported) Calcium Carbonate/Vitamin D3 1 Each Tablet, 1 TAB PO HS, (Reported) Cholecalciferol (Vitamin D3) 2,000 Unit Capsule, 2,000 UNIT PO HS, (Reported) Clopidogrel 75 Mg Tablet, 75 MG PO EVERY OTHER EVENING, (Reported) Fluticasone/Salmeterol 1 Disk Inhp, 1 PUFF INH BID, (Reported) Furosemide 40 Mg Tablet, 40 MG PO DAILY, #90 Ref 3 Prescribed by: CORNELIUS LESTER on 09/25/15 0836 Levothyroxine Sodium 100 Mcg Tablet, 100 MCG PO DAILY, (Reported) Multivitamin 1 Each Tablet, 1 TAB PO DAILY, (Reported) Multivitamin with Minerals 1 Each Tablet, 1 TAB PO DAILY, (Reported) Funk-3S/Dha/Epa/Fish Oil 1 Each Capsule, 1,200 MG PO BID, (Reported) Pantoprazole Sodium 40 Mg Tablet.dr, 40 MG PO DAILY, (Reported) Potassium Chloride 20 Meq Tab.er.prt, 20 MEQ PO DAILY@0700, #90 Ref 3 Prescribed by: CORNELIUS LESTER on 09/25/15 0836 Simvastatin 40 Mg Tablet, 40 MG PO HS, (Reported) Spironolactone 25 Mg Tablet, 25 MG PO DAILY, (Reported) Tiotropium [place] 1 Inh Aerp, 1 INH INH DAILY, (Reported) Ubidecarenone 200 Mg Capsule, 200 MG PO HS, (Reported) Vitamin B Complex & Vit C No.4 150 Mg Tablet, 1 TAB PO DAILY, (Reported) Vitamin E Mixed 400 Unit Capsule, 400 UNIT PO DAILY, (Reported) Past Anwmyyr-Ghvnah-Ctlomp Hx Patient Social History Alcohol Use: Denies Use Recreational Drug Use: No Smoking Status: Former Smoker Former smoker/When Quit: Feb 05, 1995 Type Used: Cigarettes Physical Abuse Screen: No Sexual Abuse: No Recent Foreign Travel: No Contact w/other who traveled: No Recent Hopitalizations: Yes Recent Infectious Disease Expo: No Immunizations Up To Date Tetanus Booster (TDap): Unknown Date of Pneumonia Vaccine: Apr 26, 2011 Date of Influenza Vaccine: May 31, 2015 Seasonal Allergies Seasonal Allergies: No Surgeries HX Surgeries: Yes (SURGERY FOR ENDOMETRIOSIS;MULTIPLE ORTHO SURGERIES;C-SPINE SURGERY) Surgeries: Adenoidectomy, Appendectomy, Cardiac, CABG, Hysterectomy, Lobectomy , Oophorectomy, Orthopedic, Pneumonectomy, Tonsillectomy Respiratory Hx Respiratory Disorders: Yes Cardiovascular Hx Cardiovascular Disorders: Yes Cardiac Disorders: Aneurysm, Chronic Edema/Swelling, Coronary Artery Disease, High Cholesterol, Hypertension, Peripheral Vascular Neurological Hx Neurological Disorders: No Reproductive System Hx Reproductive Disorders: No Sexually Transmitted Disease: No HIV/AIDS: No Female Reproductive Disorders: Denies, Endometriosis Genitourinary Hx Genitourinary Disorders: No Gastrointestinal Hx Gastrointestinal Disorders: Yes Gastrointestinal Disorders: Gastroesophageal Reflux, Hemorrhoids Musculoskeletal Hx Musculoskeletal Disorders: Yes (CHRONIC NECK PAIN--S/P SURGERY, MULTIPLE ORTHO SURGERIES) Musculoskeletal Disorders: Arthritis Endocrine Hx Endocrine Disorders: Yes Endocrine Disorders: Hypothyroidsim HEENT HX ENT Disorders: Yes HEENT Disorders: Cataract Loss of Vision: Bilateral Hearing Impairment: Bilateral Hearing Aide Cancer Hx Cancer: Yes Cancer: Lung Psychosocial Hx Psychiatric Problems: No Integumentary HX Skin/Integumentary Disorder: No Blood Transfusions Hx Blood Disorders: No Adverse Reaction to a Blood Tr: No Family Medical History Significant Family History: No Pertinent Family Hx Family Hx: Constitutional: no symptoms reported, see HPI EENTM: no symptoms reported, see HPI Respiratory: see HPI, No cough, dyspnea on exertion, No hemoptysis, No orthopnea, No phlegm, No short of breath, No stridor, No wheezing, No other Cardiovascular: see HPI, chest pain, No edema, No Hx of Intervention, No palpitations, No syncope, No vascular heart diseas, No other Gastrointestinal: see HPI, abdominal pain, diarrhea, nausea Genitourinary: no symptoms reported, see HPI Musculoskeletal: no symptoms reported, see HPI Skin: see HPI Psychiatric/Neurological: No Symptoms Reported, See HPI Physical Exam Vital Signs Vital Sign - Last 12Hours 11/24/16 22:09 Temp 96.9 Pulse 78 Resp 16 B/P (MAP) 130/94 Pulse Ox 96 O2 Delivery Nasal Cannula O2 Flow Rate 2.00 Capillary Refill : Less Than 3 Seconds General Appearance: No Apparent Distress, WD/WN Eyes: Bilateral Eye EOMI, Bilateral Eye Normal Inspection, Bilateral Eye PERRL HEENT: PERRL/EOMI, TMs Normal, Normal ENT Inspection, Pharynx Normal Neck: Full Range of Motion, Normal Inspection, Non Tender, Supple, Carotid Bruit Respiratory: Chest Non Tender, Lungs Clear, Normal Breath Sounds, No Accessory Muscle Use, No Respiratory Distress Cardiovascular: Regular Rate, Rhythm, No Edema, No Gallop, No JVD, No Murmur, Normal Peripheral Pulses Gastrointestinal: Normal Bowel Sounds, No Organomegaly, No Pulsatile Mass, Non Tender, Soft Back: Normal Inspection, No CVA Tenderness, No Vertebral Tenderness Extremity: Normal Capillary Refill, Normal Inspection, Normal Range of Motion, Non Tender, No Calf Tenderness, No Pedal Edema Neurologic/Psychiatric: Alert, Oriented x3, No Motor/Sensory Deficits, Normal Mood/Affect Skin: Normal Color, Warm/Dry Lymphatic: No Adenopathy Clinical Quality Measures DVT/VTE Risk/Contraindication: Risk Factor Score Per Nursin RFS Level Per Nursing on Admit: 2=Moderate Short Stay Diagnosis Discharge Diagnosis-Short Stay Admission Diagnosis: diarrhea, improved, gastroenteritis Elevated troponin level Coronary artery disease Peripheral arterial disease Final Discharge Diagnosis: gastroenteritis Coronary artery disease Peripheral arterial disease Hypertension Conclusion Labs Laboratory Tests 11/24/16 22:36: White Blood Count 9.7, Red Blood Count 4.67, Hemoglobin 14.5, Hematocrit 45, Mean Corpuscular Volume 96, Mean Corpuscular Hemoglobin 31, Mean Corpuscular Hemoglobin Concent 32, Red Cell Distribution Width 13.2, Platelet Count 210, Mean Platelet Volume 10.2, Neutrophils (%) (Auto) 64, Lymphocytes (%) (Auto) 28 , Monocytes (%) (Auto) 8, Eosinophils (%) (Auto) 1, Basophils (%) (Auto) 0, Neutrophils # (Auto) 6.2, Lymphocytes # (Auto) 2.7, Monocytes # (Auto) 0.8, Eosinophils # (Auto) 0.1, Basophils # (Auto) 0.0, Sodium Level 141, Potassium Level 4.0, Chloride Level 107, Carbon Dioxide Level 23, Anion Gap 11, Blood Urea Nitrogen 23H, Creatinine 0.94, Estimat Glomerular Filtration Rate 58, BUN/ Creatinine Ratio 24, Glucose Level 90, Calcium Level 10.6H, Magnesium Level 2.1 , Total Bilirubin 0.5, Aspartate Amino Transf (AST/SGOT) 25, Alanine Aminotransferase (ALT/SGPT) 25, Alkaline Phosphatase 64, Troponin I 2.80*H, B- Type Natriuretic Peptide 41.5, Total Protein 7.2, Albumin 4.4 11/25/16 00:35: Stool Occult Blood Immunoassay POSITIVEH 11/25/16 05:44: Troponin I < 0.30 Conclusion/Plan Diarrhea, gastroenteritis, reporting improvement, receiving IV fluid. Feeling better at this time. Elevated troponin, transient, repeat troponin this morning was normal, EKG did not show any acute abnormality, probably lab error. Coronary artery disease with a h/o CABG. Last cath of 09-23-[address] Villagran showed 60% ostial left main, patent vein graft to the left main with 80% stenosis at the anastomosis point (unchanged compared to 2015 study); patent PATRICIA to the LAD, very small PATRICIA, with competitive flow through the [place] artery with severe disease in the proximal LAD and with considerable distal vessel disease in a small caliber vessel (unchanged); small, nondominant circumflex artery, which is patent; totally occluded right coronary artery and vein graft to the right posterolateral branch; patent vein graft to the right posterior descending artery with good flow in the distal [place] artery; prominent aortic root, no dissection was noted Severe peripheral arterial disease with severe right iliac artery stenosis. Moderate right superficial femoral artery stenosis and severe disease below the trifurcation in both lower extremities, patient has been followed by heart and vascular care, denied any claudication at this point. Gastroesophageal reflux and esophagitis, being managed by Dr. Dixon Chronic exertional dyspnea, continue to monitor Sleep apnea associated with nocturnal hypoxemia with brief runs of supraventricular tachycardia and non-sustained ventricular tachycardia. All of these issues have been corrected once the patient was placed on C-PAP therapy with supplemental oxygen. 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 Chairez at [facility]. This procedure was done in July 2008. Chronic obstructive pulmonary disease. History of ascending aortic dilatation, stable on successive CT imaging of the ascending aorta, it measures 4.2 cm. The last one was in July 2014. Cardiac cath by Dr. Villagran in July 2014 showed the thoracic aortogram/aortic root angiogram showed slightly prominent ascending thoracic aorta. No dissection was noted. followed by Dr. Davis CT of the chest of August 2011 showed findings consistent with atypical adenomatous hyperplasia, for which she is following with Dr. Dixon and Dr. Nunez Carotid arterial disease, mild, previously being followed by Dr. Ulloa office Hyperlipidemia, followed and managed by primary care physician Hypertension Recent cervical spinal surgery with improvement of symptoms of radiculopathy. Recent left carpal tunnel surgery with improvement of symptoms of hand discomfort. Increasing propensity to bruising possibly related to antiplatelet therapy Migraines for which she is following with Dr. Powell in [place], [place] H/o gen anxiety disorder Right LE edema of undetermined etiology - no evidenc of DVT per u/s of 08-07-15 Mild hypercalcemia on labs of 08/13/15 for which f/u is with OLI Humphrey MD November 25, 2016 08:31
[2016-11-25] MEDS ORDERED: POTA20TA15 PO (08:33)
[2016-11-25] MEDS ORDERED: PRAV40TA2 PO (08:33)
[2016-11-25] MEDS ORDERED: ASPI1TAB22 PO (08:33)
[2016-11-25] MEDS ORDERED: FURO20TA4 PO (08:33)
[2016-11-25] MEDS ORDERED: NON-FORMULARY MEDICATION 1 EA EA (Aspirin/Acetaminophen/Caffeine (Excedrin Migraine Caplet PO PRN (08:45)
[2016-11-25] MEDS ORDERED: FUROSEMIDE 20 MG (LASIX) TAB PO PRN (08:45)
[2016-11-25] MEDS ORDERED: ACETAMINOPHEN 1300 MG PO PRN (08:45)
[2016-11-25] MEDS ORDERED: KCL 20 MEQ TAB (K-DUR) PO PRN (08:45)
[2016-11-25] MEDS ORDERED: ALPRAZolam 0.25 MG (XANAX) TAB PO PRN (08:45)
[2016-11-25] MEDS ORDERED: MULTIVIT W/MINERALS TAB (THERAGRAN M) PO SCH (09:00)
[2016-11-25] MEDS ORDERED: [UNRECOGNIZED DRUG - OTHER] PO SCH (09:00)
[2016-11-25] MEDS ORDERED: ASPIRIN 325 MG (5 GR) TABLET PO SCH (09:00)
[2016-11-25] MEDS ORDERED: NON-FORMULARY MEDICATION 1 EA EA (Omega-3S/Dha/Epa/Fish Oil (Fish Oil 1,200 Mg Softgel) 1, PO SCH (09:00)
[2016-11-25] MEDS ORDERED: PANTOPRAZOLE 40 MG (PROTONIX) TAB PO SCH (09:00)
[2016-11-25] MEDS ORDERED: VIT C NO 4 PO SCH (09:00)
[2016-11-25] MEDS ORDERED: MULTIVITAMIN WITH MINERALS PO SCH (09:00)
[2016-11-25] MEDS ORDERED: SPIRONOLACTONE 25 MG (ALDACTONE) TAB PO SCH (09:00)
[2016-11-25] MEDS ORDERED: LEVOTHYROXINE 100 MCG (LEVOTHROID) TAB PO SCH (09:00)
[2016-11-25] MEDS ORDERED: [UNRECOGNIZED DRUG - OTHER] PO SCH (09:00)
[2016-11-25] MEDS ORDERED: [UNRECOGNIZED DRUG - OTHER] INH SCH (09:00)
[2016-11-25] MEDS ORDERED: FLUTICASONE INH SCH (09:00)
[2016-11-25] MEDS ORDERED: SALMETEROL INH SCH (09:00)
[2016-11-25] MEDS ORDERED: VITAMIN B COMPLEX PO SCH (09:00)
[2016-11-25] MEDS ORDERED: ACETAMINOPHEN 500 MG TAB (TYLENOL) PO PRN (10:15)
[2016-11-25 10:27] VITALS: BP 103/60
[2016-11-25] MEDS ORDERED: RT-ADVAIR HFA 45/21 MCG PER PUFF IH SCH (10:30)
[2016-11-25] MEDS ORDERED: CALCIUM CARB + VIT D 600 MG (CALCARB + D) TAB PO SCH (17:00)
[2016-11-25] MEDS ORDERED: OMEGA 3 (FISH OIL) 1000 MG CAP PO SCH (17:00)
[2016-11-25] MEDS ORDERED: NON-FORMULARY MEDICATION 1 EA EA (Ubidecarenone (Co Q-10) 200 MG) PO SCH (21:00)
[2016-11-25] MEDS ORDERED: NON-FORMULARY MEDICATION 1 EA EA (Bisoprolol Fumarate 10 MG) PO SCH (21:00)
[2016-11-25] MEDS ORDERED: NON-FORMULARY MEDICATION 1 EA EA (Cholecalciferol (Vitamin D3) (Vitamin D-3) 2,000 UNIT) PO SCH (21:00)
[2016-11-25] MEDS ORDERED: NON-FORMULARY MEDICATION 1 EA EA (Pravastatin Sodium 40 MG) PO SCH (21:00)
[2016-11-25] MEDS ORDERED: SIMvastatin 20 MG (ZOCOR) TAB PO SCH (21:00)
[2016-11-25] MEDS ORDERED: VITAMIN D3 1,000 UNITS (CHOLECALCIFEROL) TABLET PO SCH (21:00)
[2016-11-26] MEDS ORDERED: CLOPIDOGREL 75 MG (PLAVIX) TABLET PO SCH (09:00)
== END 2016-11-25 10:20 | disposition home or self-care (01) | DRG 392 ==
LOC: EDUNIT# 21:36 → ER 21:37 → ICU 11-25 02:07
PROVIDERS: ADMIT Internal Medicine Cardiovascular Disease; ATTEND Internal Medicine Cardiovascular Disease
DX: K52.9 Noninfective gastroenteritis and colitis, unspecified (principal); I25.10 Atherosclerotic heart disease of native coronary artery without angina pectoris; I10 Essential (primary) hypertension; I70.201 Unspecified atherosclerosis of native arteries of extremities, right leg; Z95.1 Presence of aortocoronary bypass graft; K21.0 Gastro-esophageal reflux disease with esophagitis; R06.09 Other forms of dyspnea; G47.36 Sleep related hypoventilation in conditions classified elsewhere; J44.9 Chronic obstructive pulmonary disease, unspecified; Z85.118 Personal history of other malignant neoplasm of bronchus and lung; I65.29 Occlusion and stenosis of unspecified carotid artery; E78.5 Hyperlipidemia, unspecified; G43.909 Migraine, unspecified, not intractable, without status migrainosus; F41.1 Generalized anxiety disorder; E83.52 Hypercalcemia; E78.00 Pure hypercholesterolemia, unspecified; E03.9 Hypothyroidism, unspecified; Z87.891 Personal history of nicotine dependence
CPT/HCPCS: 36415; 71010; 74177; 80053; 82274; 83735; 83880; 84484; 85025; 87045; 87046; 87324; 87449; 89055; 93005; 96361; 96374